=== PATIENT | female | born 1990 | race American Indian/Alaskan Native ===

== ENCOUNTER 2018-07-25 11:36 | Outpatient (CLI) | payer BC | END 2018-07-25 16:00 | disposition home or self-care (01) | LOC: LAB 11:36 → TRG 14:58 → LAB 16:00 | PROVIDERS: ATTEND Obstetrics & Gynecology | DX: O36.0130 Maternal care for anti-D [Rh] antibodies, third trimester, not applicable or unspecified (principal); Z3A.28 28 weeks gestation of pregnancy | CPT/HCPCS: 86850; 86900; 86901; J2790 ==

== ENCOUNTER 2018-09-15 13:15 | Outpatient (CLI) | payer BC, OTHER ==
[2018-09-15 13:36] VITALS: BP 103/64
[2018-09-15 14:31] LABS: Bacteria,Urine 2+ /HPF (Negative); Bilirubin,Urine NEG (Negative); Blood,Urine NEG (Negative); Color,Urine Yellow (Yellow); Mucus,Urine 1+ /HPF; Protein,Urine <15 mg/dL mg/dL (Negative); Urobilinogen,Urine < 2.0 mg/dL (<2.0)
[2018-09-15] MEDS ORDERED: LACTATED RINGERS 500 ML IV ONE (14:37)
== END 2018-09-15 17:41 | disposition home or self-care (01) ==
LOC: TRG 13:15
PROVIDERS: ATTEND Obstetrics & Gynecology
DX: O9A.213 Injury, poisoning and certain other consequences of external causes complicating pregnancy, third trimester (principal); Z3A.35 35 weeks gestation of pregnancy; X58.XXXA Exposure to other specified factors, initial encounter; Y93.89 Activity, other specified; Y92.89 Other specified places as the place of occurrence of the external cause; Y99.8 Other external cause status
CPT/HCPCS: 59025; 81001; 85460

== ENCOUNTER 2018-10-16 01:00 | Inpatient (IN) | payer BC ==
[2018-10-16] MEDS ORDERED: LACTATED RINGERS 1,000 ML ONE (03:20)
[2018-10-16 04:29] LABS: Basophils # (Auto) 0.2 K/mm3 (0.0-0.1); Basophils % (Auto) 1.1 % (0.0-1.8); Eosinophils # (Auto) 0.2 K/mm3 (0.0-0.4); Eosinophils % (Auto) 1.1 % (0.0-4.3); Hematocrit 34.6 % (30.3-42.9); Hemoglobin 11.7 gm/dl (10.1-14.3); Lymphocytes % (Auto) 12.7 % (13.4-35.0); Mean Corpuscular HGB Conc 34 % (30-34); Mean Corpuscular Volume 88 fl (79-97); Monocytes # (Auto) 1.2 K/mm3 (0.0-0.8); Monocytes % (Auto) 7.4 % (0.0-7.3); Platelet Count 238 K/mm3 (140-440); Red Blood Count 3.93 M/mm3 (3.65-5.03); Red Cell Distribution Width 13.9 % (13.2-15.2)
[2018-10-16] MEDS ORDERED: MINERAL OIL PO PRN (04:47)
[2018-10-16] MEDS ORDERED: BRETHINE SUB-Q PRN (04:47)
[2018-10-16] MEDS ORDERED: XYLOCAINE 2% INFILTRATI ONE (04:47)
[2018-10-16] MEDS ORDERED: PITOCin/NS 20 UNIT/1000ML DRIP 20 UNITS/1,000 ML BAG IV SCH (05:00)
[2018-10-16] MEDS ORDERED: LACTATED RINGERS 1,000 ML IV SCH ×2 (05:00→10:00)
--- NOTE | 2018-10-16 05:20 | History and Physical Report ---
History of Present Illness Date of examination: 10/16/18 Date of admission: 10/16/18 03:49 Chief complaint: Contractions. History of present illness: 28 year old presents to L&D with complaint of painful contractions since 9:15 PM last evening. Patient denies vaginal bleeding or leaking of fluid. Patient reports active movement. Patient received care at [facility]. LMP 12/25/17. EDC 10/14/18 based on US. EGA 40 weeks, 2 days gestation. significant for the following: late entry to care, anemia (patient noncompliant with oral iron), abnormal quad screen (showed increased risk for Down Syndrome) but normal NIPT, hemoglobin C trait, vitamin D deficiency (supplemented with vitamin D). labs are as follows: A-, antibody screen negative, rubella nonimmune, varicella nonimmune, GBS negative, RPR nonreactive, HIV negative, hepatitis B surface antigen negative, HSV 2 negative, diabetes screen 100, quad screen positive (increased risk Down Syndrome), panorama low risk. Past History Past Medical History: other (underweight, hemoglobin C trait) Past Surgical History: no surgical history [facility] History: denies: abnormal PAP smear, chlamydia, gonorrhea, hepatitis B, hepatitis C, herpes, HIV, syphilis, trichomonas Family/Genetic History: none Social history: , full code. denies: smoking, alcohol abuse, prescription drug abuse, IV drug use - Obstetrical History Expected Date of Delivery: 10/14/18 Actual Gestation: 40 Week(s) 2 Day(s) : 1 Para: 0 Hx # Term Pregnancies: 1 Number of Pregnancies: 0 Spontaneous Abortions: 0 Induced : 0 Number of Living Children: 0 Medications and Allergies Allergies Allergy/AdvReac Type Severity Reaction Status Date / Time No Known Allergies Allergy Verified 09/15/18 13:37 Home Medications Medication Instructions Recorded Confirmed Last Taken Type No Known Home Medications [No 10/16/18 10/16/18 Unknown History Reported Home Medications] Active Meds: Active Medications Ephedrine Sulfate (Ephedrine Sulfate) 10 mg IV Q2M PRN PRN Reason: Hypotension Fentanyl (Sublimaze) 100 mcg IV Q2H PRN PRN Reason: Labor Pain Lactated Ringer's (Lactated Ringers) 1,000 mls @ 125 mls/hr IV DIRECT RASHI Oxytocin/Sodium Chloride (Pitocin/Ns 20 Unit/1000ml Drip) 20 units in 1,000 mls @ 125 mls/hr IV DIRECT RASHI Mineral Oil (Mineral Oil) 30 ml PO QHS PRN PRN Reason: Constipation Terbutaline Sulfate (Brethine) 0.25 mg SUB-Q ONCE PRN PRN Reason: Hyperstimulation/Hypertonicity Review of Systems All systems: negative (contractions) - Vital Signs Vital signs: Vital Signs Temp Resp 97.9 F 18 10/16/18 01:10 10/16/18 01:10 Temp Pulse Resp BP Pulse Ox 97.9 F 92 H 18 121/73 10/16/18 01:10 10/16/18 04:12 10/16/18 01:10 10/16/18 04:12 - Physical Exam Abdomen: Positive: normal appearance, soft. Negative: distention, tenderness, guarding, rigidity Genitourinary (Female): Positive: normal external genitalia, normal perenium. Negative: perineal/vulvar lesions Vagina: Positive: normal moisture Uterus: Positive: enlarged (size=dates) Anus/Rectum: Positive: normal perianal skin Extremities: Positive: normal. Negative: tenderness, edema - Obstetrical FHR: category 1 Uterine Contraction Monitor Mode: External Cervical Dilatation: 3.5 Cervical Effacement Percentage: 80 station: -2 Uterine Contraction Pattern: Regular Uterine Contraction Intensity: Moderate Results Result Diagrams: 10/16/18 03:30 Abnormal lab results 10/16/18 Range/Units 03:30 WBC 16.2 H (4.5-11.0) K/mm3 Lymph % (Auto) 12.7 L (13.4-35.0) % [place] % (Auto) 7.4 H (0.0-7.3) % [place] # 1.2 H (0.0-0.8) K/mm3 Baso # 0.2 H (0.0-0.1) K/mm3 Seg Neutrophils % 77.7 H (40.0-70.0) % Seg Neutrophils # 12.6 H (1.8-7.7) K/mm3 All other labs normal. Assessment and Plan A: at 40 weeks, 2 days gestation. Labor. GBS negative. P: Admit. See orders. Continuous EFM. Anticipate vaginal .
[2018-10-16] MEDS: SUBLIMAZE IV PRN ×3 (05:32→12:30)
[2018-10-16 06:31] LABS: Hematocrit 34.3 % (30.3-42.9); Hemoglobin 11.6 gm/dl (10.1-14.3); Mean Corpuscular HGB Conc 34 % (30-34); Mean Corpuscular Volume 88 fl (79-97); Platelet Count 254 K/mm3 (140-440); Red Blood Count 3.91 M/mm3 (3.65-5.03); Red Cell Distribution Width 14.2 % (13.2-15.2)
--- NOTE | 2018-10-16 09:00 | Event Note ---
Date: 10/16/18 Patient requests pain medication. SVE /-2/BBOW. Will augment labor with Pitocin. Risks and benefits of Pitocin labor augmentation discussed with patient. Patient consented to Pitocin augmentation of labor.
[2018-10-16] MEDS ORDERED: PITOCin/NS 30 UNIT/500ML 30 UNITS/500 ML BAG IV SCH (10:00)
[2018-10-16 13:20] LABS: Bilirubin,Urine NEG (Negative); Blood,Urine MOD (Negative); Color,Urine Yellow (Yellow); Mucus,Urine FEW /HPF; Protein,Urine <15 mg/dL mg/dL (Negative); Urobilinogen,Urine < 2.0 mg/dL (<2.0)
[2018-10-16] MEDS ORDERED: NARCAN 2 MG/2 ML IV PRN (14:58)
--- NOTE | 2018-10-16 14:58 | Anesthesia Consultation ---
Anesthesia Consult and Med Hx Date of service: 10/16/18 - Airway Anesthetic Teeth Evaluation: Good ROM Head & Neck: Adequate Mental/Hyoid Distance: Adequate Mallampati Class: Class II Intubation Access Assessment: Probably Good - Pre-Operative Health Status ASA Pre-Surgery Classification: ASA2 Proposed Anesthetic Plan: Epidural, Spinal - Pulmonary Hx Asthma: No COPD: No Hx Pneumonia: No - Cardiovascular System Hx Hypertension: No - Central Nervous System Hx Seizures: No Hx Psychiatric Problems: No - Endocrine Hx Renal Disease: No Hx End Stage Renal Disease: No Hx Hypothyroidism: No Hx Hyperthyroidism: No - Hematic Hx Anemia: No Hx Sickle Cell Disease: No - Other Systems Hx Alcohol Use: No
[2018-10-16] MEDS ORDERED: fentaNYL-BUPIV 2 MCG/ML-0.125% 200 MCG/100 ML BAG EPIDURAL SCH (15:00)
[2018-10-16] MEDS ORDERED: MILK OF MAGNESIA PO PRN (20:04)
[2018-10-16] MEDS ORDERED: TUCKS PAD TP PRN (20:04)
[2018-10-16] MEDS ORDERED: NORCO 5/325 PO PRN (20:04)
[2018-10-16] MEDS ORDERED: LANSINOH TP PRN (20:04)
--- NOTE | 2018-10-16 20:12 | Procedure Note ---
OB Delivery Note - Delivery Date of Delivery: 10/16/18 Surgeon: DILLON ANDERSON Estimated blood loss: 200cc - Vaginal Delivery presentation: vertex Delivery position: OA Intrapartum events: meconium Delivery augmentation: pitocin Delivery monitor: external FHT, external uterine Route of delivery: Delivery placenta: spontaneous Delivery cord: 3 umbilical vessels Episiotomy: none Delivery laceration: 1st degree Delivery repair: vicryl Anesthesia: epidural Delivery comments: Spontaneous vaginal delivery at 19:18 of liveborn female weighing 6 lb. 4 oz. over intact perineum with apgars of 8/9. Meconium stained amniotic fluid. 3 vessel cord double clamped and cut and baby taken immediately to radiant warmer for suctioning by NICU team after . Spontaneous cry and respirations. Spontaneous delivery of intact placenta and membranes at 19:25. EBL 200 cc. Pitocin to IV fluids after delivery of placenta. Fundus firm and midline. Vaginal sweep negative. Repair of 1st degree right labial laceration with 3-0 vicryl. Sponge count correct. Mother and baby stable in birthing room.
[2018-10-16] MEDS ORDERED: SODIUM CHLORIDE FLUSH SYRINGE 10 ML IV PRN (21:00)
[2018-10-16] MEDS: IBUPROFEN PO SCH (23:49)
[2018-10-17] MEDS: IBUPROFEN PO SCH ×4 (06:08→23:51)
[2018-10-17 08:59] LABS: Hemoglobin 9.9 gm/dl (10.1-14.3)
--- NOTE | 2018-10-17 10:47 | Progress Note ---
Assessment and Plan - Patient Problems (1) Status post normal vaginal delivery Current Visit: Yes Status: Acute Plan to address problem: PPD 1 - stable Continue routine PP orders Anticipate discharge in 24 hours (2) Anemia due to blood loss, acute Current Visit: Yes Status: Acute Plan to address problem: Asymptomatic Iron therapy initiated (3) Rh negative status during Current Visit: Yes Status: Acute Qualifiers: Trimester: third trimester Qualified Code(s): O26.893 - Other specified related conditions, third trimester; Z67.91 - Unspecified blood type, Rh negative Plan to address problem: Antibody screen negative Rhogam ordered Subjective - Subjective Date of service: 10/17/18 Principal diagnosis: PPD #1; s/p Interval history: see H&P, Event Note and OB Delivery Procedure Note Patient reports: appetite normal, voiding normally, pain well controlled, ambulating normally, no dizzy ambulation, no bowel movement : doing well, other (breast and bottle feeding) Objective - Vital Signs Latest vital signs: Vital Signs Temp Pulse Resp BP Pulse Ox 10/17/18 07:40 98.3 F 79 16 106/59 98 10/17/18 06:49 18 10/17/18 06:08 18 10/17/18 05:38 98.6 F 102 H 20 95/57 99 10/16/18 23:59 98.9 F 88 20 115/79 99 10/16/18 23:49 18 10/16/18 21:38 98.8 F 92 H 18 115/74 98 10/16/18 20:48 69 91 10/16/18 20:45 83 100 10/16/18 20:43 81 120/73 10/16/18 20:40 87 99 10/16/18 20:35 90 99 10/16/18 20:30 80 100 10/16/18 20:28 79 131/81 10/16/18 20:25 86 98 10/16/18 20:20 88 99 10/16/18 20:15 84 99 10/16/18 20:13 88 132/78 10/16/18 20:10 112 H 100 10/16/18 20:05 120 H 100 10/16/18 20:00 87 100 10/16/18 19:57 88 125/72 10/16/18 19:55 87 100 04/28/19 19:50 89 100 10/16/18 19:45 83 100 10/16/18 19:42 123/73 10/16/18 19:40 92 H 100 10/16/18 19:35 95 H 99 10/16/18 19:30 85 100 10/16/18 19:28 86 118/74 10/16/18 19:25 100 H 100 10/16/18 19:20 124 H 100 10/16/18 19:15 120 H 100 10/16/18 19:14 81 166/72 10/16/18 19:10 104 H 100 10/16/18 19:05 91 H 100 10/16/18 19:00 91 H 100 10/16/18 18:58 77 118/66 10/16/18 18:55 77 100 10/16/18 18:50 78 100 10/16/18 18:45 87 100 10/16/18 18:43 78 131/66 10/16/18 18:40 113 H 100 10/16/18 18:35 84 100 10/16/18 18:30 92 H 108/55 100 10/16/18 18:25 73 100 10/16/18 18:20 87 100 10/16/18 18:15 86 100 10/16/18 18:13 93 H 114/76 10/16/18 18:10 79 100 10/16/18 18:05 85 100 10/16/18 18:00 71 100 10/16/18 17:59 70 104/71 10/16/18 17:55 68 100 10/16/18 17:50 86 100 10/16/18 17:45 85 100 10/16/18 17:43 74 118/67 10/16/18 17:40 71 100 10/16/18 17:35 88 100 10/16/18 17:30 79 100 10/16/18 17:29 97.8 F 16 10/16/18 17:28 70 119/69 10/16/18 17:24 69 100 10/16/18 17:19 73 100 10/16/18 17:14 73 100 10/16/18 17:13 95 H 122/56 10/16/18 17:09 71 100 10/16/18 17:04 111 H 98 10/16/18 16:59 73 100 10/16/18 16:58 71 117/68 10/16/18 16:54 109 H 98 10/16/18 16:49 74 99 10/16/18 16:44 79 119/69 98 10/16/18 16:39 75 99 10/16/18 16:34 70 99 10/16/18 16:29 78 99 10/16/18 16:28 68 116/65 10/16/18 16:24 73 99 10/16/18 16:19 98 H 99 10/16/18 16:14 71 99 10/16/18 16:13 69 122/70 10/16/18 16:09 71 99 10/16/18 16:04 70 100 10/16/18 15:59 71 100 10/16/18 15:58 69 126/77 10/16/18 15:54 76 98 10/16/18 15:49 70 99 10/16/18 15:44 70 100 10/16/18 15:41 69 127/79 10/16/18 15:39 72 127/79 100 10/16/18 15:37 79 121/74 10/16/18 15:35 71 128/79 10/16/18 15:34 74 100 10/16/18 15:33 76 125/78 10/16/18 15:31 78 130/73 10/16/18 15:29 78 124/71 100 10/16/18 15:27 83 133/86 10/16/18 15:25 74 134/84 10/16/18 15:24 74 100 10/16/18 15:23 73 134/82 10/16/18 15:21 77 134/82 10/16/18 15:19 97 H 118/74 100 10/16/18 15:17 80 117/72 10/16/18 15:15 77 116/73 10/16/18 15:14 79 100 10/16/18 15:13 84 126/72 10/16/18 15:11 100 H 134/89 10/16/18 15:09 84 132/81 100 10/16/18 11:21 98.6 F 18 Intake and Output 10/16/18 10/17/18 10/17/18 23:59 07:59 15:59 Intake Total 240 120 Output Total 1400 900 Balance -1160 -780 Intake: Oral 240 Intake, Free Water 120 Output: Urine 1400 900 Void 1400 900 Other: Total, Intake Amount 240 Total, Output Amount 900 900 # Voids Void 1 Estimated Blood Loss 200 - Exam Cardiovascular: Present: Regular rate Lungs: Present: Clear to auscultation Abdomen: Present: normal appearance, soft Vulva: both: laceration/episiotomy (well approximated) Uterus: Present: normal, firm, fundal height below umbilicus Extremities: Present: normal Comments: scant lochia - Labs Labs: Abnormal lab results 10/17/18 Range/Units 07:42 Hgb 9.9 L (10.1-14.3) gm/dl Hct 29.0 L (30.3-42.9) %
[2018-10-17] MEDS: COLACE PO SCH ×3 (11:39→23:51)
[2018-10-17] MEDS: FEOSOL PO SCH ×2 (11:40→23:50)
[2018-10-18] MEDS: IBUPROFEN PO SCH ×3 (06:35→17:45)
--- NOTE | 2018-10-18 09:59 | Progress Note ---
Assessment and Plan - Patient Problems (1) Anemia due to blood loss, acute Current Visit: Yes Status: Acute Plan to address problem: Asymptomatic Continue iron supplementation as ordered (2) Rh negative status during Current Visit: Yes Status: Acute Qualifiers: Trimester: third trimester Qualified Code(s): O26.893 - Other specified related conditions, third trimester; Z67.91 - Unspecified blood type, Rh negative Plan to address problem: Rhogam workup ordered per hospital policy (3) Status post normal vaginal delivery Current Visit: Yes Status: Acute Plan to address problem: Continue routine PP orders Anticipate d/c home later today F/U in 6 weeks at office for routine PPV Subjective - Subjective Date of service: 10/18/18 (3785) Principal diagnosis: PPD #1; s/p Interval history: See admission H & P, OB delivery summary and PP progress notes Patient reports: appetite normal, voiding normally, pain well controlled (with medications), flatus, ambulating normally, no bowel movement [place]: other (Baby under Bili lights until 1100 today), bottle feeding (and breast feeding) Objective - Vital Signs Latest vital signs: Vital Signs Temp Pulse Resp BP BP Pulse Ox 10/18/18 07:10 98.1 F 74 18 86/53 10/17/18 23:57 84 99 10/17/18 23:56 98.8 F 87 20 106/70 97 10/17/18 16:10 98.3 F 82 20 117/76 98 10/17/18 11:45 97.9 F 117 H 20 127/79 97 Intake and Output 10/17/18 10/18/18 10/18/18 23:59 07:59 15:59 Intake Total 480 600 Balance 480 600 Intake: Oral 480 600 Other: Total, Intake Amount 240 120 # Voids Void 1 1 - Exam Breasts: Present: normal Cardiovascular: Present: Regular rate Lungs: Present: Normal air movement Abdomen: Present: normal appearance, soft, normal bowel sounds Uterus: Present: firm, fundal height below umbilicus (U-2) Extremities: Present: normal Deep Tendon Reflex Grade: Normal +2 Incision: Present: other (laceration repair site healing as expected)
--- NOTE | 2018-10-18 10:05 | Discharge Summary ---
Providers - Providers Date of Admission: 10/16/18 03:49 Date of discharge: 10/18/18 (1700) Attending physician: YAJAIRA SRIVASTAVA MD Primary care physician: YAJAIRA SRIVASTAVA MD Hospitalization Reason for admission: active labor, IUP at term Delivery: Episiotomy: none Laceration: 1st degree (healing as expected) Other procedures: none complications: none Discharge diagnosis: IUP at term delivered, other (anemia; Vit D deficiency; Hbg C trait) [place] baby: female Hospital course: See admission H & P, OB delivery summary and PP progress notes Condition at discharge: Stable Disposition: DC-01 TO HOME OR SELFCARE - Discharge Diagnoses (1) Anemia due to blood loss, acute Status: Acute (2) Rh negative status during Status: Acute Qualifiers: Trimester: third trimester Qualified Code(s): O26.893 - Other specified related conditions, third trimester; Z67.91 - Unspecified blood type, Rh negative (3) Status post normal vaginal delivery Status: Acute (4) Vitamin D deficiency Status: Acute Plan - Provider Discharge Summary Activity: routine, no sex for 6 weeks, no heavy lifting 4 weeks, no strenuous exercise Diet: routine Instructions: routine Additional instructions: [] Smoking cessation referral if applicable(refer to patient education folder for contact #) [] Refer to [facility] Booklet Call your doctor immediately for: * Fever > 100.5 * Heavy vaginal bleeding ( >1 pad per hour) * Severe persistent headache * Shortness of breath * Reddened, hot, painful area to leg or breast * Drainage or odor from incision. - Follow up plan Follow up: YAJAIRA SRIVASTAVA MD [Primary Care Provider] - 6 Weeks
[2018-10-18] MEDS: COLACE PO SCH (11:19)
[2018-10-18] MEDS: FEOSOL PO SCH (11:19)
[2018-10-18 17:17] VITALS: BP 108/68
== END 2018-10-18 18:36 | disposition home or self-care (01) | DRG 806 ==
LOC: TRG 01:00 → LD 03:49 → OB 21:55
PROVIDERS: ADMIT Obstetrics & Gynecology; ATTEND Obstetrics & Gynecology
PROC: 10E0XZZ Delivery of Products of Conception, External Approach (ICD-10-PCS; principal; 2018-10-16)
PROC: 0HQ9XZZ Repair Perineum Skin, External Approach (ICD-10-PCS; 2018-10-16)
PROC: 3E0R3BZ Introduction of Anesthetic Agent into Spinal Canal, Percutaneous Approach (ICD-10-PCS; 2018-10-16)
PROC: 00HU33Z Insertion of Infusion Device into Spinal Canal, Percutaneous Approach (ICD-10-PCS; 2018-10-16)
PROC: 3E0334Z Introduction of Serum, Toxoid and Vaccine into Peripheral Vein, Percutaneous Approach (ICD-10-PCS; 2018-10-17)
DX: O26.893 Other specified pregnancy related conditions, third trimester (principal); D62 Acute posthemorrhagic anemia; Z37.0 Single live birth; Z3A.40 40 weeks gestation of pregnancy; Z67.11 Type A blood, Rh negative; O77.0 Labor and delivery complicated by meconium in amniotic fluid; O70.0 First degree perineal laceration during delivery; O90.81 Anemia of the puerperium
CPT/HCPCS: 36415; 81001; 85014; 85018; 85025; 85027; 85461; 86592; 86850; 86900; 86901; 87086; G0378; J2590; J2790; J3010; J7120